=== PATIENT | female | born 1960 | race Caucasian/White ===

== ENCOUNTER → 2020-05-13 | Outpatient (CLI) | payer BC ==
--- NOTE | 2020-05-13 17:53 | Diagnostic Imaging Report ---
PROCEDURE: MR imaging cervical spine without contrast. TECHNIQUE: Multiplanar, multisequence MR imaging of the cervical spine was performed without contrast. INDICATION: Numbness, right-sided fingers and arm weakness, neck pain. No known discrete injury. COMPARISON: I have no relevant comparison. FINDINGS: There is straightening of cervical curvature but no listhesis. The vertebral statures are normal. The cervical spinal cord itself appears normal. No paravertebral mass, hemorrhage or fluid collection. The craniocervical relationship in the C1-C2 articulation appeared normal. C2-C3: Mild osteophyte disc material at this level results in mild left foraminal stenosis. The canal and right foramen are widely patent. C3-C4: Disc desiccation stature loss with bulge and endplate osteophytes result in moderate canal stenosis with flattening of the ventral thecal sac. There is moderate right and mild left foraminal stenosis. C4-C5: Posterior osteophyte disc material indents the ventral thecal sac greater left with a moderate degree of canal stenosis. There is [id number] left and moderate right neural foraminal stenoses. C5-C6: Osteophyte disc material effaces the ventral thecal sac with moderate canal stenosis. There is severe right and moderate severity of left foraminal stenosis with asymmetric right greater than left facet arthrosis and uncovertebral joint spurring. C6-C7: Posterior osteophyte disc material effaces the ventral thecal sac with [id number] canal stenosis and severe biforaminal narrowing. C7-T1: Osteophyte disc material and facet arthrosis result in moderate biforaminal narrowing with mild canal stenosis. IMPRESSION: 1. Significant degrees of multilevel canal and foraminal stenoses are listed level by level above on the basis of disc bulge, endplate osteophytes, facet arthrosis and uncovertebral joint spurring. 2. No acute bony pathology. The cord appeared normal. Dictated by: Dictated on workstation # [id number]
== END ==
LOC: RAD 15:01
PROVIDERS: ATTEND Nurse Practitioner Family
DX: M47.812 Spondylosis without myelopathy or radiculopathy, cervical region (principal); M50.21 Other cervical disc displacement, high cervical region; M50.31 Other cervical disc degeneration, high cervical region; M48.02 Spinal stenosis, cervical region; M25.78 Osteophyte, vertebrae
CPT/HCPCS: 72141

== ENCOUNTER → 2020-06-19 | Outpatient (CLI) | payer BC ==
--- NOTE | 2020-06-19 12:39 | Diagnostic Imaging Report ---
HISTORY: Right arm numbness and tingling. Cervical radiculopathy. COMPARISON: MRI from 05/13/2020. TECHNIQUE: Frontal, lateral neutral, lateral flexion and lateral extension views of the cervical spine. FINDINGS: There is slight left convex curvature of the cervical spine which may be positional. There is grade 1 anterolisthesis at C2-C3 measuring 2 mm in flexion which resolves in extension. There is 3 mm of anterolisthesis at C5-C6 which appears fixed in flexion and extension. There is 3 mm anterolisthesis at C7-T1 which also appears fixed in flexion and extension. There are severe degenerative changes at C4-C5, C5-C6 and C6-C7. There is mild chronic height loss with no acute fracture seen. There is multilevel facet arthropathy, right greater than left. Prevertebral soft tissues appear normal. IMPRESSION: 1. Multilevel grade 1 spondylolisthesis. At C2-C3 there is 2 mm of change between flexion and extension, but no significant dynamic instability is seen. 2. Advanced degenerative changes at C4-C5, C5-C6 and C6-C7. Dictated by: Dictated on workstation # [id number]
== END ==
LOC: RAD 11:09
PROVIDERS: ATTEND Neurological Surgery
DX: M47.22 Other spondylosis with radiculopathy, cervical region (principal); M43.12 Spondylolisthesis, cervical region
CPT/HCPCS: 72050